=== PATIENT | male | born 1930 | race Two or more races ===

== ENCOUNTER → 2017-05-28 | Outpatient (CLI) | payer OTHER ==
[~2017-05-28] MED LIST: AMIO200T44 PO; AMLO-512 PO; ASPI-730 PO; ATOR40TA28 PO; CLOP75TA32 PO; LEVO100 PO; LORA10TA7 PO; METO-296 PO; METO-408 PO; OMEP20 PO; [UNRECOGNIZED DRUG - OTHER]
== END | disposition home or self-care (01) ==
LOC: RADPV 09:51
PROVIDERS: ATTEND Internal Medicine Cardiovascular Disease
DX: I65.23 Occlusion and stenosis of bilateral carotid arteries (principal)
CPT/HCPCS: 93880

== ENCOUNTER → 2019-02-26 | Outpatient (CLI) | payer MEDICARE, OTHER ==
[~2019-02-26] MED LIST changes: -AMIO200T44 PO; -AMLO-512 PO; +AMLO10TA7 PO; +APIX5TAB PO; -CLOP75TA32 PO; +ESCI10TA PO; +FURO40 PO; +IOVERSOL 350 MG/ML 100 ML VIAL ONE; +SODIUM CHLORIDE 0.9% 100 ML ONE
== END | disposition home or self-care (01) ==
LOC: RADMN 08:47
PROVIDERS: ATTEND Legal Medicine
DX: R91.8 Other nonspecific abnormal finding of lung field (principal); M89.8X8 Other specified disorders of bone, other site
CPT/HCPCS: 71260; J7050; Q9967